=== PATIENT | male | born 1995 | race Caucasian/White ===

== ENCOUNTER 2019-08-20 20:37 | Emergency (ER) | payer OTHER ==
[~2019-08-20] VITALS: Ht 180.3 cm; Wt 69.9 kg
[2019-08-20 20:59] VITALS: Ht 180.3 cm; Wt 69.9 kg
[2019-08-20 21:26] LABS: PLATELET COUNT 268 x10^3mcL (130-400)
[2019-08-20 21:27] LABS: BASOPHIL % 0 % (0-2)
[2019-08-20 21:47] LABS: ALBUMIN 4.6 g/dL (3.4-5.0); ALT/SGPT 25 U/L (16-63); AST/SGOT 20 U/L (15-37); BILIRUBIN TOTAL 1.37 mg/dL (0.20-1.00); CALCIUM 9.1 mg/dL (8.5-10.1); CARBON DIOXIDE 26.6 mmol/L (21-32); CHLORIDE SERUM 101 mmol/L (98-107); GFR1 > 60 mL/min; GLUCOSE SERUM 99 mg/dL (74-106); POTASSIUM SERUM 4.1 mmol/L (3.5-5.1); SODIUM SERUM 138 mmol/L (136-145); TOTAL PROTEIN, SERUM 8.2 g/dL (6.4-8.2)
[2019-08-20 21:48] LABS: ALKALINE PHOSPHATASE 62 U/L (46-116); LIPASE 128 IU/L (73-393)
[2019-08-20 22:05] LABS: C REACTIVE PROTEIN < 0.2 mg/dL (<=0.9)
[2019-08-21 01:34] VITALS: BP 119/60
== END 2019-08-21 01:34 | disposition home or self-care (01) ==
LOC: ED 20:37
PROVIDERS: Emergency Medicine
DX: R10.10 Upper abdominal pain, unspecified (principal); R11.10 Vomiting, unspecified; R19.7 Diarrhea, unspecified
CPT/HCPCS: J1885; J2405; J7030